=== PATIENT | female | born 1950 ===

== ENCOUNTER 2018-01-07 06:00 | Day surgery (SDC) | payer OTHER ==
[~2018-01-07] VITALS: Ht 157.5 cm; Wt 64.9 kg
[2018-01-07] MEDS ORDERED: METF1TAB34 PO (06:45)
[2018-01-07] MEDS ORDERED: METO25TA PO (06:45)
[2018-01-07] MEDS ORDERED: LOSA50TA39 PO (06:45)
[2018-01-07] MEDS ORDERED: DAPA5TAB PO (06:45)
[2018-01-07] MEDS ORDERED: SYN.05 PO (06:45)
[2018-01-07] MEDS ORDERED: LIDOCAINE 2% 100 MG/5 ML UJET TP ONE (07:12)
[2018-01-07] MEDS ORDERED: KETOROLAC 30 MG/ML VIAL ONE (08:09)
== END 2018-01-07 08:58 | disposition home or self-care (01) ==
LOC: MOR 06:00 → MMU 06:00 → MOR 08:58
PROVIDERS: ATTEND Internal Medicine Gastroenterology
DX: K62.5 Hemorrhage of anus and rectum (principal); E66.3 Overweight; I10 Essential (primary) hypertension; E11.9 Type 2 diabetes mellitus without complications; E05.90 Thyrotoxicosis, unspecified without thyrotoxic crisis or storm; Z79.899 Other long term (current) drug therapy
CPT/HCPCS: 45378; 82948; J1885